=== PATIENT | male | born 1990 | race Caucasian/White ===

== ENCOUNTER 2017-07-22 22:11 | Emergency (ER) | payer SELFPAY ==
[2017-07-22] MEDS ORDERED: HYDROMORPHONE HCL INJ/PF 2 MG/ML AMPULE IM ONE (22:49)
--- NOTE | 2017-07-22 22:54 | ER Document Report ---
ED General - General Chief Complaint: Penile Injury Stated Complaint: PELVIC PAIN Time Seen by Provider: 07/22/17 22:49 Notes: Patient is a 26-year-old male who presents with complaint of pain and bruising and swelling to his penis. He was having sex and had a ring at the base of his penis. His pain is been during sex and he felt a pop. He merely removed the ring. Since then he has had bruising and swelling to the shaft of his penis. He is not been able to urinate. He says he is numb from the mid shaft of his penis down to the tip of his penis. He has a small amount of pain in the right testicle. No bruising or swelling to the testicle. He has a previous history of testicular torsion of the right testicle that he had surgery for by urologist at [facility] in the summer of last year. TRAVEL OUTSIDE OF THE [place] IN LAST 30 DAYS: No - Related Data Allergies/Adverse Reactions: No Known Allergies Allergy (Verified 07/22/17 22:15) Past Medical History - Social History Smoking Status: Never Smoker Frequency of alcohol use: None Drug Abuse: None Family History: Reviewed & Not Pertinent - Past Medical History Cardiac Medical History: Denies: Hx Coronary Artery Disease, Hx Heart Attack, Hx Hypertension Pulmonary Medical History: Denies: Hx Asthma, Hx Bronchitis, Hx COPD, Hx Pneumonia Neurological Medical History: Denies: Hx Cerebrovascular Accident, Hx Seizures Musculoskeltal Medical History: Denies Hx Arthritis - Immunizations Hx Diphtheria, Pertussis, Tetanus Vaccination: Yes Review of Systems - Review of Systems Notes: My Normal Review Basic REVIEW OF SYSTEMS: CONSTITUTIONAL : Denies fever, chills, or sweats. Denies recent illness.. GASTROINTESTINAL: Denies abdominal pain. Denies nausea, vomiting. GENITOURINARY: Bruising and swelling to the penis. MUSCULOSKELETAL: Denies neck or back pain or joint pain or swelling. SKIN: Denies rash or skin lesions. NEUROLOGICAL: Numbness in distal penis. ALL OTHER SYSTEMS REVIEWED AND NEGATIVE. Physical Exam - Vital signs Vitals: Temp Pulse BP Pulse Ox 99.0 F 108 H 145/89 H 96 07/22/17 22:29 07/22/17 22:29 07/22/17 22:29 07/22/17 22:29 - Notes Notes: General Appearance: Well nourished, alert, cooperative, no acute distress, moderate obvious discomfort. Vitals: reviewed, See vital signs table. Eyes: PERRL, EOMI, Conjuctiva clear Abdomen: Normal BS, soft, No rigidity, No abdominal tenderness, General: Patient is bruising and swelling to the penis. He has pain at the base of his penis but is numb from about the midshaft of the penis to the distal tip of the penis. No blood coming from the urethral meatus at this time. No swelling into the testicles. He has just slight tenderness palpation of the right testicle. Left testicle is nontender. Skin: warm, dry, appropriate color, small scattered macules in antecubital region bilaterally that are easily blanchable. Neuro: speech clear, oriented x 3, normal affect, responds appropriately to questions. Course - Re-evaluation Re-evalutation: 07/22/17 22:55 Immediately after seeing the patient I have called in a [facility] to speak with urology. Transfer center will page urologist and call me back. 07/22/17 23:[address] Mendieta, urologist, who agrees to accept the patient is ER to ER transfer. I spoke with Dr. Barry, ER attending and inform him of the patient is agreeable plan as well. I informed patient is the plan and agreeable to it. Patient does not have the ability to transport himself down there and therefore we are trying to arrange transport to help him get to [facility]. 07/23/17 00:09 Patient's mother did come to the hospital so she can drive him. Patient is received fentanyl is actually bit sleepy on a make sure that the patient does not have worsening somnolence before being transported by private vehicle. They are agreeable to waiting. 07/23/17 00:18 A months has arrived to transport the patient. We will send him by the [facility] transport supposed to by private vehicle being that the patient is somewhat from the pain medicine this way he can be monitored more closely. They are agreeable to this. Patient will be transferred. Patient is medically stable. His current oxygen saturation is 97% on room air. He still sleepy from the pain medicine but he is oxygenating well without signs of decompensation. Dictation of this chart was performed using voice recognition software; therefore, there may be some unintended grammatical errors. 07/23/17 00:19 - Vital Signs Vital signs: Temp Pulse Resp BP Pulse Ox 98.0 F 89 12 128/76 H 96 07/23/17 00:13 07/23/17 00:13 07/23/17 00:13 07/23/17 00:13 07/23/17 00:13
[2017-07-22] MEDS ORDERED: HYDROMORPHONE HCL INJ/PF 2 MG/ML AMPULE IV ONE (22:58)
[2017-07-22] MEDS ORDERED: FENTANYL CITRATE INJ/PF 100 MCG/2 ML AMPUL IV ONE (23:36)
[2017-07-23 00:15] VITALS: BP 128/76
== END 2017-07-23 00:30 | disposition short-term general hospital (02) ==
LOC: ER 22:11
DX: S39.840A Fracture of corpus cavernosum penis, initial encounter (principal); X50.9XXA Other and unspecified overexertion or strenuous movements or postures, initial encounter; Y93.89 Activity, other specified; R20.0 Anesthesia of skin; N50.811 Right testicular pain; Z98.890 Other specified postprocedural states
CPT/HCPCS: 99284; J3010; J1170